=== PATIENT | male | born 1960 | race African-American/Black ===

== ENCOUNTER 2023-08-12 14:50 | Inpatient (IN) | payer OTHER ==
[~2023-08-12] VITALS: Ht 185.4 cm; Wt 78.0 kg
[2023-08-12 17:17] LABS: BASOPHILS % 0.7 % (0.0-2.0); DIFFERENTIAL COMMENT 0; EOSINOPHILS % 1.6 % (0.0-5.0); HEMATOCRIT. 37.6 % (42.0-52.0); HEMOGLOBIN. 11.1 g/dL (14.0-18.0); MEAN CORPUSCULAR HEMOGLOBIN 25.4 pg (28.0-32.0); MEAN CORPUSCULAR HGB CONC 29.6 g/dL (31.0-37.0); MEAN CORPUSCULAR VOLUME 85.8 fL (80.0-94.0); MEAN PLATELET VOLUME 10.3 fl (7.4-10.4); MONOCYTES % 8.9 % (2.0-8.0); NEUTROPHILS % 57.8 % (40.0-76.0); PLATELET 107 x1000/uL (130-400); RED BLOOD CELL COUNT 4.39 mill/uL (4.7-6.1); WHITE BLOOD COUNT 2.1 x1000/uL (4.5-11.0)
[2023-08-12 17:23] LABS: INR 1.2
[2023-08-12 17:27] LABS: ALANINE AMINOTRANSFERASE 12 IU/L (10-49); ALBUMIN 3.4 g/dL (3.2-4.8); ASPARTATE AMINOTRANSFERASE 14 IU/L (<34); BILIRUBIN TOTAL 0.5 mg/dL (0.1-1.0); CALCIUM 10.3 mg/dL (8.7-10.4); CARBON DIOXIDE 23 mEq/L (21-32); CHLORIDE 114 mEq/L (98-107); CREATININE 3.5 mg/dL (0.6-1.3); GLUCOSE 76 mg/dL (70-105); PROTEIN TOTAL 7.7 g/dL (6.0-8.3); SODIUM 144 mEq/L (136-145); TROPONIN I HIGH SENSITIVITY 26 ng/L (3.0-53); UREA NITROGEN BLOOD 68 mg/dL (9-23)
[2023-08-12 17:32] LABS: POTASSIUM 6.5 mEq/L (3.5-5.1)
[2023-08-12] MEDS ORDERED: INSULIN REGULAR (HUMULIN R) 300UNITS/3ML VIAL IV ONE (17:45)
[2023-08-12] MEDS ORDERED: DEXTROSE 50% WATER 50ML SYRINGE IV ONE (17:45)
[2023-08-12] MEDS ORDERED: ALBUTEROL (0.083%) 2.5MG/3ML NEB HHN ONE (17:45)
[2023-08-12] MEDS ORDERED: SODIUM POLYSTYRENE SULFONATE 15 G/60 ML BOT PO ONE (17:45)
[2023-08-12] MEDS ORDERED: CALCIUM GLUCONATE 100MG/ML 10ML VIAL IV ONE (17:45)
[2023-08-12 17:54] VITALS: PULSE 91; RESP 20; O2SAT 93
[2023-08-12] MEDS ORDERED: FUROSEMIDE 20MG/2ML VIAL IVP ONE (18:00)
[2023-08-12] MEDS ORDERED: FUROSEMIDE 40MG/4ML VIAL IVP NR (18:45)
[2023-08-12] MEDS ORDERED: SODIUM CHLORIDE 0.9% 500 ML IV ONE (19:45)
[2023-08-12 22:21] VITALS: TEMP 98.4
[2023-08-12 22:36] LABS: CLARITY URINE CLEAR (CLEAR); COLOR URINE YELLOW (YELLOW)
[2023-08-12 22:37] LABS: GLUCOSE URINE NEGATIVE (NEGATIVE); KETONES URINE NEGATIVE (NEGATIVE); LEUKOCYTE ESTERASE URINE NEGATIVE (NEGATIVE); NITRITE URINE NEGATIVE (NEGATIVE); OCCULT BLOOD URINE NEGATIVE (NEGATIVE); PH URINE 5.5 (4.5-8.0); PROTEIN URINE 1+ (NEGATIVE); SPECIFIC GRAVITY URINE 1.025 (1.005-1.030); UROBILINOGEN URINE 0.2 E.U./dL (0.2-1.0)
[2023-08-12 22:52] LABS: BACTERIA URINE 2+; RBC URINE 0-2 /hpf (0-2); SQUAMOUS EPITHELIAL CELL URINE FEW /lpf (RARE/1+); WBC URINE 0-2 /hpf (0-2)
[2023-08-13 00:09] LABS: ALANINE AMINOTRANSFERASE 12 IU/L (10-49); ALBUMIN 3.2 g/dL (3.2-4.8); ASPARTATE AMINOTRANSFERASE 13 IU/L (<34); BILIRUBIN TOTAL 0.4 mg/dL (0.1-1.0); CALCIUM 10.5 mg/dL (8.7-10.4); CARBON DIOXIDE 21 mEq/L (21-32); CHLORIDE 114 mEq/L (98-107); CREATININE 3.4 mg/dL (0.6-1.3); GLUCOSE 111 mg/dL (70-105); POTASSIUM 5.7 mEq/L (3.5-5.1); SODIUM 145 mEq/L (136-145); UREA NITROGEN BLOOD 54 mg/dL (9-23)
[2023-08-13] MEDS ORDERED: IPRATROPIUM/ALBUTEROL 0.5-3(2.5)MG/3ML NEB HHN PRN (04:15)
[2023-08-13 04:20] VITALS: BP 105/62; PULSE 102; RESP 20
== END 2023-08-13 05:17 | disposition left against medical advice (07) | DRG 641 ==
LOC: EDSEX 14:57 → ER 14:57 → MICUSO 20:21
PROVIDERS: ADMIT Internal Medicine; ATTEND Internal Medicine
DX: E87.5 Hyperkalemia (principal); N17.9 Acute kidney failure, unspecified; J90 Pleural effusion, not elsewhere classified; E11.22 Type 2 diabetes mellitus with diabetic chronic kidney disease; N18.9 Chronic kidney disease, unspecified; Z20.822 Contact with and (suspected) exposure to COVID-19; I12.9 Hypertensive chronic kidney disease with stage 1 through stage 4 chronic kidney disease, or unspecified chronic kidney disease; Z53.29 Procedure and treatment not carried out because of patient's decision for other reasons; Z86.73 Personal history of transient ischemic attack (TIA), and cerebral infarction without residual deficits; Z99.81 Dependence on supplemental oxygen; Z79.84 Long term (current) use of oral hypoglycemic drugs
CPT/HCPCS: 36415; 71045; 80053; 81003; 83605; 83880; 84145; 84484; 85025; 87426; 87804; 93005; 94644; 96361; 96374; 96375; 99291; C9803; J0610; J1815; J1940; J7040

== ENCOUNTER 2023-09-27 11:29 | Emergency (ER) | payer OTHER ==
[~2023-09-27] VITALS: Ht 172.7 cm; Wt 46.0 kg
[2023-09-27 11:44] VITALS: BP 0/0; PULSE 0; RESP 0; TEMP 98.6; O2SAT 0
== END 2023-09-27 11:36 ==
LOC: ER 11:29
DX: I46.9 Cardiac arrest, cause unspecified (principal); E11.9 Type 2 diabetes mellitus without complications; I13.0 Hypertensive heart and chronic kidney disease with heart failure and stage 1 through stage 4 chronic kidney disease, or unspecified chronic kidney disease; Z86.73 Personal history of transient ischemic attack (TIA), and cerebral infarction without residual deficits
CPT/HCPCS: 82962; 92950; 99285